=== PATIENT | male | born 1945 | race Asian ===

== ENCOUNTER 2016-10-11 16:14 | Emergency (ER) | payer OTHER ==
[2016-10-11 16:29] VITALS: BP 134/83; PULSE 72; TEMP 98.2; BMI 21.7
[2016-10-11 18:11] LABS: BASOPHIL 0.5 % (0-2.0); EOSINOPHIL 3.5 % (0-4.5); MCH 28.1 pg (25.7-33.7); MCHC 33.7 g/dl (32.0-35.9); MEAN CELL VOLUME 83.5 fl (80-96); MEAN PLT VOLUME 9.1 fl (7.5-11.1); NEUTROPHILS 61.7 % (42.8-82.8); PLATELET COUNT 155 K/MM3 (134-434); RDW 15.6 % (11.9-15.9); WHITE BLOOD COUNT 5.2 K/mm3 (4.0-10.0)
--- NOTE | 2016-10-11 18:37 | PDOC ---
History of Present Illness <Juan Diego Andrews - Last Filed: 10/11/16 18:37> - General History Source: Patient Exam Limitations: No Limitations - History of Present Illness Initial Comments: 10/11/16 18:38 The patient is a 71 year old male with a significant past medical history of depression, who presents to the emergency department with dizziness that began two hours ago. Patient states he was outside his home with his son when all of a sudden he felt dizziness, and his son was able to catch him before he fell. He denies any head trauma or LOC. The patient describes the dizziness as if the room were spinning. He reports he was recently started on Klonopin 2 days ago, by a Psychiatrist, and thats when his dizziness began. Patient denies any dizziness prior to the change in his medication. He denies any associated nausea , vomiting, diarrhea, or constipation. He denies any fever, chills, cough, headache, or changes in vision. He denies any recent travel or sick contacts. Allergies: NKDA Past Surgical History: None reported Social History: Non smoker. No ETOH or drug use. <Elias Hayden - Last Filed: 10/11/16 18:39> - General Chief Complaint: Lightheaded Stated Complaint: DIZZINESS Time Seen by Provider: 10/11/16 17:25 Past History - Past Medical History Psychiatric Problems: Yes (DEPRESSION) Suicide Attempt (Hx): No - Surgical History GI Surgery: Yes (ULCER) - Psycho/Social/Smoking Cessation Hx Anxiety: No Suicidal Ideation: No Smoking History: Never smoked Have you smoked in the past 12 months: No Information on smoking cessation initiated: No Hx Alcohol Use: No Drug/Substance Use Hx: No Substance Use Type: None <Juan Diego Andrews - Last Filed: 10/11/16 18:37> <Elias Hayden - Last Filed: 10/11/16 18:39> - Past Medical History Allergies/Adverse Reactions: Allergies Allergy/AdvReac Type Severity Reaction Status Date / Time No Known Allergies Allergy Verified 11/03/14 03:50 Home Medications: Ambulatory Orders Clonazepam [Klonopin -] 0.5 mg PO BID 10/11/16 Paliperidone [Invega -] 3 mg PO HS 10/11/16 Review of Systems - Review of Systems Able to Perform ROS?: Yes Comments:: 10/11/16 18:38 GENERAL/CONSTITUTIONAL: Yes: +weakness. No fever or chills. HEAD, EYES, EARS, NOSE AND THROAT: No change in vision. No ear pain or discharge. No sore throat. CARDIOVASCULAR: No chest pain or shortness of breath. RESPIRATORY: No cough, wheezing, or hemoptysis. GASTROINTESTINAL: No nausea, vomiting, diarrhea or constipation. GENITOURINARY: No dysuria, frequency, or change in urination. MUSCULOSKELETAL: No joint or muscle swelling or pain. No neck or back pain. SKIN: No rash NEUROLOGIC: Yes: +dizziness. No headache, loss of consciousness, or change in strength/sensation. ENDOCRINE: No increased thirst. No abnormal weight change. HEMATOLOGIC/LYMPHATIC: No anemia, easy bleeding, or history of blood clots. ALLERGIC/IMMUNOLOGIC: No hives or skin allergy. <Elias Hayden - Last Filed: 10/11/16 18:39> *Physical Exam - Vital Signs Last Vital Signs Temp Pulse Resp BP Pulse Ox 98.2 F 72 18 134/83 98 10/11/16 16:25 10/11/16 16:25 10/11/16 16:25 10/11/16 16:25 10/11/16 16:25 <Juan Diego Andrews - Last Filed: 10/11/16 18:37> - Vital Signs Last Vital Signs Temp Pulse Resp BP Pulse Ox 98.2 F 72 18 134/83 98 10/11/16 16:25 10/11/16 16:25 10/11/16 16:25 10/11/16 16:25 10/11/16 16:25 - Physical Exam Comments: 10/11/16 18:38 GENERAL: Awake, alert, and fully oriented, in no acute distress HEAD: No signs of trauma EYES: PERRLA, EOMI, sclera anicteric, conjunctiva clear ENT: Auricles normal inspection, hearing grossly normal, nares patent, oropharynx clear without exudates. Moist mucosa NECK: Normal ROM, supple, no lymphadenopathy, JVD, or masses LUNGS: Breath sounds equal, clear to auscultation bilaterally. No wheezes, and no crackles HEART: Regular rate and rhythm, normal S1 and S2, no murmurs, rubs or gallops ABDOMEN: Soft, nontender, normoactive bowel sounds. No guarding, no rebound. No masses EXTREMITIES: Normal range of motion, no edema. No clubbing or cyanosis. No cords, erythema, or tenderness. 5/5 strength in all 4 extremities.+2 bilateral dp, pt, and radial pulses NEUROLOGICAL: Cranial nerves II through XII grossly intact. Normal speech. Sensation intact bilaterally UE and LE. SKIN: Warm, Dry, normal turgor, no rashes or lesions noted. <Elias Hayden - Last Filed: 10/11/16 18:39> Heart Score/ECG Review - ECG Intrepretation Comment:: 10/11/16 18:39 Vent Rate: 64 bpm IMPRESSION: Normal sinus rhythm. <Elias Hayden - Last Filed: 10/11/16 18:39> ED Treatment Course - LABORATORY CBC & Chemistry Diagram: 10/11/16 17:55 10/11/16 17:55 - ADDITIONAL ORDERS Additional order review: 10/11/16 17:55 RBC 4.87 MCV 83.5 MCHC 33.7 RDW 15.6 MPV 9.1 Neutrophils % 61.7 Lymphocytes % 22.5 Monocytes % 11.8 H Eosinophils % 3.5 Basophils % 0.5 - RADIOLOGY Radiology Studies Ordered: Category Date Time Status HEAD CT WITHOUT CONTRAST [CT] Stat CT Scan 10/11/16 17:36 Ordered CHEST X-RAY PORTABLE* [RAD] Stat Radiology 10/11/16 17:36 Ordered <Juan Diego Andrews - Last Filed: 10/11/16 18:37> - LABORATORY CBC & Chemistry Diagram: 10/11/16 17:55 10/11/16 17:55 - ADDITIONAL ORDERS Additional order review: 10/11/16 17:55 RBC 4.87 MCV 83.5 MCHC 33.7 RDW 15.6 MPV 9.1 Neutrophils % 61.7 Lymphocytes % 22.5 Monocytes % 11.8 H Eosinophils % 3.5 Basophils % 0.5 <Elias Hayden - Last Filed: 10/11/16 18:39> *DC/Admit/Observation/Transfer - Attestations Physician Attestion: 10/11/16 18:37 I, Dr. Juan Diego Andrews, attest that this document has been prepared under my direction and personally reviewed by me in its entirety. I further attest, that it accurately reflects all work, treatment, procedures and medical decision -making performed by me. <Juan Diego Andrews - Last Filed: 10/11/16 18:37> - Attestations Scribe Attestion: 10/11/16 18:38 Documentation prepared by Elias Hayden, acting as registered medical transcriptionist for Juan Diego Andrews DO. <Elias Hayden - Last Filed: 10/11/16 18:39> - Referrals Referrals: Marlen Peng MD [Primary Care Provider] -
[2016-10-11 18:39] LABS: INR 1.06 (0.82-1.09); PROTHROMBIN TIME (PATIENT) 11.7 SEC (9.98-11.88)
[2016-10-11 18:52] LABS: ALBUMIN 3.2 g/dl (3.4-5.0); ANION GAP 6 (8-16); BILIRUBIN,TOTAL 0.3 mg/dL (0.2-1.0); CALCIUM 8.5 mg/dL (8.5-10.1); CO2 30 mmol/L (21-32); GLUCOSE,RANDOM 85 mg/dL (74-106); SGOT/AST 13 U/L (15-37); SGPT/ALT 19 U/L (12-78); TOT PROT 6.6 g/dl (6.4-8.2)
[2016-10-11 18:55] LABS: ALK PHOS 72 U/L (45-117); CPK 55 IU/L (39-308); TROPONIN I < 0.02 ng/ml (0.00-0.05)
--- NOTE | 2016-10-11 19:56 | PDOC ---
*Physical Exam - Vital Signs Last Vital Signs Temp Pulse Resp BP Pulse Ox 98.2 F 72 18 134/83 98 10/11/16 16:25 10/11/16 16:25 10/11/16 16:25 10/11/16 16:25 10/11/16 16:25 ED Treatment Course - LABORATORY CBC & Chemistry Diagram: 10/11/16 17:55 10/11/16 17:55 - ADDITIONAL ORDERS Additional order review: Laboratory Results 10/11/16 10/11/16 17:55 17:55 INR 1.06 Sodium 139 Potassium 4.1 Chloride 103 Carbon Dioxide 30 Anion Gap 6 L BUN 13 Creatinine 1.0 Creat Clearance w eGFR > 60 Random Glucose 85 Calcium 8.5 Total Bilirubin 0.3 AST 13 L ALT 19 Alkaline Phosphatase 72 Creatine Kinase 55 Troponin I < 0.02 B-Natriuretic Peptide 54.06 Total Protein 6.6 Albumin 3.2 L 10/11/16 17:55 RBC 4.87 MCV 83.5 MCHC 33.7 RDW 15.6 MPV 9.1 Neutrophils % 61.7 Lymphocytes % 22.5 Monocytes % 11.8 H Eosinophils % 3.5 Basophils % 0.5 *DC/Admit/Observation/Transfer Diagnosis at time of Disposition: Dizziness - Discharge Dispostion Disposition: HOME Condition at time of disposition: Stable Admit: No - Referrals Referrals: Marlen Peng MD [Primary Care Provider] - - Patient Instructions Printed Discharge Instructions: DI for Dizziness-Nonvertigo Additional Instructions: Please follow up with your doctor and no longer take the medication Klonopin - Post Discharge Activity
--- NOTE | 2016-10-12 15:30 | EKG ---
Test Reason : Blood Pressure : / mmHG Vent. Rate : 067 BPM Atrial Rate : 067 BPM P-R Int : 166 ms QRS Dur : 086 ms QT Int : 428 ms P-R-T Axes : 065 043 056 degrees QTc Int : 452 ms NORMAL SINUS RHYTHM NORMAL ECG NO PREVIOUS ECGS AVAILABLE Confirmed by ROSA TORRES MD ([id number]) on 10/12/2016 3:30:30 PM Referred By: Confirmed By:ROSA TORRES MD
== END 2016-10-11 20:11 | disposition home or self-care (01) ==
LOC: JER 16:14
DX: R42 Dizziness and giddiness (principal); F32.9 Major depressive disorder, single episode, unspecified
CPT/HCPCS: 36415; 70450-TC; 71010-TC; 80053; 83880; 84484; 85025; 85610; 93005; 93010; 99284-25

== ENCOUNTER 2018-05-30 20:17 | Inpatient (IN) | payer OTHER ==
[2018-05-30] MEDS ORDERED: ACETAMINOPHEN 1000 MG/100 ML VIAL (NON FORMULARY) IVPB ONE (20:40)
[2018-05-30] MEDS ORDERED: FAMOTIDINE 20 MG/50 ML IVPB 20 MG/50 ML MG IVPB ONE ×2 (20:40→21:10)
[2018-05-30] MEDS ORDERED: SODIUM CHLORIDE 1,000 ML IV STA (20:40)
[2018-05-30] MEDS ORDERED: ONDANSETRON 4 MG/2 ML VIAL IVPUSH ONE (20:40)
--- NOTE | 2018-05-30 20:55 | PDOC ---
Attending Attestation - HPI HPI: 05/30/18 21:10 The patient is a 73 year old male, with a significant past medical history of, who presents to the emergency department with, 2 days of abdominal pain. He denies any recent fevers, chills, headache or dizziness. He denies any recent nausea, vomit, diarrhea or constipation. He denies any recent chest pain or shortness of breath. He denies any recent dysuria, frequency, urgency or hematuria. Allergies: NKDA Primary Care Physician: Dr. Marlen Peng <Gautam Meredith - Last Filed: 05/30/18 21:10> - Resident Resident Name: Romaine Gallegos - ED Attending Attestation I have performed the following: I have examined & evaluated the patient, The case was reviewed & discussed with the resident, I agree w/resident's findings & plan, Exceptions are as noted - Physicial Exam PE: 05/31/18 00:16 Agree with exam as documented by resident Abd soft, nt, nd, no guarding, no rebound - Medical Decision Making 05/31/18 00:17 73M with non-specific, non-tender abdominal px, no GI/ symptoms, last BM yesterday consider sbo, gastritis, infection uti, divertic, less likely mesenteric ischemia, appy, alma, vascular f/u labs f/u ct ap 05/31/18 00:[address] ap send type/screen abx analgesia admit for surgical intervention 05/31/18 00:54 <Andres Nicole - Last Filed: 05/31/18 00:54> Attestations - Attestations 05/30/18 21:10 Documentation prepared by Gautam Meredith, acting as medical research assistant for Andres Nicole MD. <Gautam Meredith - Last Filed: 05/30/18 21:10>
[2018-05-30 20:58] LABS: BASO % 0.3 % (0-2.0); EOS % 1.3 % (0-4.5); HEMATOCRIT 41.4 % (35.4-49); HEMOGLOBIN 13.6 GM/dL (11.7-16.9); LYMPH % 9.6 % (8-40); MCH 27.7 pg (25.7-33.7); MCHC 32.9 g/dl (32.0-35.9); MEAN CELL VOLUME 84.2 fl (80-96); MEAN PLT VOLUME 9.4 fl (7.5-11.1); MONO % 7.6 % (3.8-10.2); NEUT % 81.2 % (42.8-82.8); PLATELET COUNT 123 K/MM3 (134-434); RBC 4.92 M/mm3 (4.00-5.60); RDW 15.1 % (11.9-15.9); WHITE BLOOD COUNT 6.7 K/mm3 (4.0-10.0)
[2018-05-30] MEDS ORDERED: ONDANSETRON 4 MG/2 ML VIAL ONE (21:09)
[2018-05-30] MEDS ORDERED: ACETAMINOPHEN INJECTION 100 ML IVPB ONE (21:09)
[2018-05-30 21:20] LABS: INR 1.11 (0.83-1.09); PROTHROMBIN TIME (PATIENT) 13.1 SEC (9.7-13.0)
--- NOTE | 2018-05-30 21:29 | PDOC ---
History of Present Illness - General Chief Complaint: Pain Stated Complaint: STOMACH PAIN Time Seen by Provider: 05/30/18 20:24 History Source: Patient Exam Limitations: No Limitations - History of Present Illness Initial Comments: 05/30/18 21:01 Patient is a 73M with history of GI ulcer s/p open repair here today complaining of abdominal pain. Patient describes the pain as periumbilical, and cannot describe it further. Denies nausea, vomiting, fevers, chills. Denies dysuria. Last bowel movement yesterday. Denies chest pain, shortness of breath. Denies leg pain, leg weakness. Past History - Past Medical History Allergies/Adverse Reactions: Allergies Allergy/AdvReac Type Severity Reaction Status Date / Time No Known Allergies Allergy Verified 05/30/18 20:20 Home Medications: Ambulatory Orders Omeprazole 20 mg PO DAILY 05/31/18 COPD: No Psychiatric Problems: Yes (DEPRESSION) - Surgical History GI Surgery: Yes (ULCER) - Suicide/Smoking/Psychosocial Hx Smoking History: Never smoked Have you smoked in the past 12 months: No Hx Alcohol Use: No Drug/Substance Use Hx: No Substance Use Type: None Review of Systems - Review of Systems Comments:: 05/30/18 21:29 GENERAL/CONSTITUTIONAL: No fever or chills. No weakness. HEAD, EYES, EARS, NOSE AND THROAT: No change in vision. No sore throat. CARDIOVASCULAR: No chest pain or shortness of breath RESPIRATORY: No cough, wheezing, or hemoptysis. GASTROINTESTINAL: No nausea, vomiting, diarrhea or constipation. GENITOURINARY: No dysuria, frequency, or change in urination. MUSCULOSKELETAL: No joint or muscle swelling or pain. No neck or back pain. SKIN: No rash NEUROLOGIC: No headache, vertigo, loss of consciousness, or change in strength/ sensation. ALLERGIC/IMMUNOLOGIC: No hives or skin allergy. *Physical Exam - Vital Signs Last Vital Signs Temp Pulse Resp BP Pulse Ox 98.0 F 80 18 138/77 100 05/30/18 20:18 05/30/18 20:18 05/30/18 20:18 05/30/18 20:18 05/30/18 20:18 - Physical Exam Comments: 05/30/18 21:30 GENERAL: Awake, alert, and fully oriented, in no acute distress, sitting up in bed HEAD: No signs of trauma, normocephalic, atraumatic EYES: PERRLA, EOMI, sclera anicteric, conjunctiva clear ENT: Auricles normal inspection, hearing grossly normal, nares patent, oropharynx clear without exudates. Moist mucosa NECK: Normal ROM, supple, no lymphadenopathy, JVD, or masses LUNGS: No distress, speaks full sentences, clear to auscultation bilaterally HEART: Regular rate and rhythm, normal S1 and S2, no murmurs, rubs or gallops, peripheral pulses normal and equal bilaterally. ABDOMEN: Soft, nontender, normoactive bowel sounds. No guarding, no rebound. No masses. Normal femoral pulses EXTREMITIES: Normal inspection, Normal range of motion, no edema. No clubbing or cyanosis. NEUROLOGICAL: Cranial nerves II through XII grossly intact. Normal speech, normal gait, no focal sensorimotor deficits SKIN: Warm, Dry, normal turgor, no rashes or lesions noted. ED Treatment Course - LABORATORY CBC & Chemistry Diagram: 05/30/18 20:50 05/30/18 20:50 - RADIOLOGY Radiology Studies Ordered: Category Date Time Status ABDOMEN & PELVIS CT WITH CONTR [CT] Stat CT Scan 05/30/18 20:57 Ordered Medical Decision Making - Medical Decision Making 05/30/18 21:30 Patient is 73M here today with abdominal pain. Vitals normal and stable. Patient appears well. No positive complaints other than vague pain. Considering age, will do broad workup. DDx includes, but is not limited to: sbo, uti, diverticulitis, gastritis. Will treat with pepcid, zofran, fluids. 05/31/18 00:31 CBC normal CMP normal. Trop and lactate negative. EKG shows sinus bradycardia with rate of [address] elevations/depressions. Normal axis. Normal intervals. No significant t wave changes. CT a/p shows findings consistent with appendicitis per [facility] read. Dr Peng and Dr Muhammad paged. Zosyn given. Pre-op labs and cxr done. 05/31/18 00:39 Case d/w Dr Peng. 05/31/18 00:41 Case d/w Dr Muhammad *DC/Admit/Observation/Transfer Diagnosis at time of Disposition: Appendicitis - Discharge Dispostion Condition at time of disposition: Stable Decision to Admit order: Yes - Referrals Referrals: Marlen Peng MD [Primary Care Provider] - - Patient Instructions - Post Discharge Activity
[2018-05-30 21:46] LABS: ALBUMIN 3.3 g/dl (3.4-5.0); ALK PHOS 79 U/L (45-117); ANION GAP 7 MMOL/L (8-16); BILIRUBIN,TOTAL 0.4 mg/dL (0.2-1); BLOOD UREA NITROGEN 10 mg/dL (7-18); CALCIUM 7.6 mg/dL (8.5-10.1); CHLORIDE 100 mmol/L (98-107); CO2 29 mmol/L (21-32); GLUCOSE,RANDOM 90 mg/dL (74-106); LIPASE 151 U/L (73-393); POTASSIUM 4.1 mmol/L (3.5-5.1); SGOT/AST 24 U/L (15-37); SGPT/ALT 14 U/L (13-61); SODIUM 136 mmol/L (136-145); TOT PROT 6.6 g/dl (6.4-8.2)
[2018-05-30 23:23] LABS: PH,URINE 6.5 (5.0-8.0); URINE APPEARANCE CLEAR; URINE BILIRUBIN NEGATIVE (NEGATIVE); URINE COLOR YELLOW; URINE GLUCOSE (UA) NEGATIVE (NEGATIVE); URINE KETONE NEGATIVE (NEGATIVE); URINE LEUK ESTERASE NEGATIVE (NEGATIVE); URINE NITRITE NEGATIVE (NEGATIVE); URINE PROTEIN NEGATIVE (NEGATIVE); URINE UROBILINOGEN 0.2 mg/dL (0.2-1.0)
[2018-05-31] MEDS ORDERED: morphine CARPU-JECT 4 MG/1 ML DISP.SYRIN IVPUSH ONE (00:29)
[2018-05-31] MEDS ORDERED: PIPERACILLIN/TAZOB 3.375 GM 3.375 GM in DEXTROSE 5%-WATER - 50 ML IVPB ONE (00:30)
[2018-05-31] MEDS ORDERED: SODIUM CHLORIDE 1,000 ML IV STA (00:30)
[2018-05-31] MEDS ORDERED: morphine SULFATE 4 MG/ML VIAL ONE (00:46)
[2018-05-31] MEDS ORDERED: PIPERACILLIN/TAZOB 3.375 GM 3.375 GM/50 ML BAG IVPB ONE (00:46)
[2018-05-31 04:58] VITALS: BMI 24.1
--- NOTE | 2018-05-31 09:14 | CONSULT ---
Consult Consult Specialty:: Surgery Referred by:: Marlen Peng - History of Present Illness Chief Complaint: Right lower quadrant abdominal pain x 2 days. - History Source History Provided By: Patient Limitations to Obtaining History: No Limitations - Past Medical History Gastrointestinal: Yes: Other ( H/O peptic ulcer disease , had surgery at [facility] about 25 years ago, Nature of surgery not known.) - Alcohol/Substance Use Hx Alcohol Use: No - Smoking History Smoking history: Never smoked Have you smoked in the past 12 months: No Home Medications - Allergies Allergies/Adverse Reactions: Allergies Allergy/AdvReac Type Severity Reaction Status Date / Time No Known Allergies Allergy Verified 05/30/18 20:20 - Home Medications Home Medications: Ambulatory Orders Omeprazole 20 mg PO DAILY 05/31/18 Review of Systems - Review of Systems Gastrointestinal: reports: Other Physical Exam Vital Signs: Vital Signs Temperature 97.7 F 05/31/18 06:00 Pulse Rate 56 L 05/31/18 06:00 Respiratory Rate 18 05/31/18 06:00 Blood Pressure 126/70 05/31/18 06:00 O2 Sat by Pulse Oximetry (%) 99 05/31/18 04:42 Gastrointestinal: Yes: Tenderness, Epigastrium (Tender in right lower quadrant. He has a periumbilical surgical scar.) Labs: CBC, BMP 05/30/18 20:50 05/30/18 20:50 Imaging - Results Cat Scan: Report Reviewed, Image Reviewed (Acute appendicitis) Problem List - Problems (1) Acute appendicitis Code(s): K35.80 - UNSPECIFIED ACUTE APPENDICITIS Qualifiers: Acute appendicitis type: with localized peritonitis (2) Right lower quadrant abdominal pain Code(s): R10.31 - RIGHT LOWER QUADRANT PAIN (3) Hiatal hernia Code(s): K44.9 - DIAPHRAGMATIC HERNIA WITHOUT OBSTRUCTION OR GANGRENE (4) Peptic ulcer disease Code(s): K27.9 - PEPTIC ULC, SITE UNSP, UNSP AC OR CHR, W/O HEMOR OR PERF Assessment/Plan : laparoscopic appendectomy, possible opwn. Patient and his were explained of his condition , of acute appendicitis, and advised appendectomy. consent obtained, Risks , benefits and complications were explained , including bowel injury , conversion to open. Antibiotics given. For surgery,.
--- NOTE | 2018-05-31 09:30 | HP ---
Admitting History and Physical - Admission Chief Complaint: abdominal pain for 2days History of Present Illness: 73 year old male with no medical problems came to ER last night with abdominal pain for 2days,denies nausea vomiting or diarrhea Mild tenderness + RLQ .CT abdomen consistent with Ac appendicitis History Source: Patient Limitations to Obtaining History: No Limitations - Past Medical History Gastrointestinal: Yes: Peptic Ulcer Disease, Other ( H/O peptic ulcer disease , had surgery at [facility] about 25 years ago, Nature of surgery not known.) Psych: Yes: Depression - Smoking History Smoking history: Never smoked Have you smoked in the past 12 months: No - Alcohol/Substance Use Hx Alcohol Use: No - Social History Usual Living Arrangement: Yes: With Spouse ADL: Independent History of Recent Travel: No Home Medications - Allergies Allergies/Adverse Reactions: Allergies Allergy/AdvReac Type Severity Reaction Status Date / Time No Known Allergies Allergy Verified 05/30/18 20:20 - Home Medications Home Medications: Ambulatory Orders Omeprazole 20 mg PO DAILY 05/31/18 Physical Examination Vital Signs: Vital Signs Temperature 97.7 F 05/31/18 06:00 Pulse Rate 56 L 05/31/18 06:00 Respiratory Rate 18 05/31/18 06:00 Blood Pressure 126/70 05/31/18 06:00 O2 Sat by Pulse Oximetry (%) 99 05/31/18 04:42 Constitutional: Yes: Well Nourished Eyes: Yes: WNL HENT: Yes: WNL Neck: Yes: WNL Cardiovascular: Yes: WNL Respiratory: Yes: WNL Gastrointestinal: Yes: Normal Bowel Sounds, Tenderness, Epigastrium (Rt lower quadrent tenderness +) Renal/: Yes: WNL Breast(s): Yes: WNL Musculoskeletal: Yes: WNL Edema: No Peripheral Pulses WNL: Yes Neurological: Yes: Alert Psychiatric: Yes: Alert Labs: CBC, BMP 05/30/18 20:50 05/30/18 20:50 Assessment/Plan Dx Acute appendicitis Cleared for surgery
[2018-05-31] MEDS ORDERED: BUPIVACAINE HCL/PF 0.5% (5MG/ML) 10 ML VIAL ONE (10:08)
--- NOTE | 2018-05-31 10:27 | EKG ---
Test Reason : Blood Pressure : / mmHG Vent. Rate : 059 BPM Atrial Rate : 059 BPM P-R Int : 178 ms QRS Dur : 088 ms QT Int : 454 ms P-R-T Axes : 059 035 055 degrees QTc Int : 449 ms SINUS BRADYCARDIA OTHERWISE NORMAL ECG WHEN COMPARED WITH ECG OF 11-OCT-2016 18:24, NO SIGNIFICANT CHANGE WAS FOUND Confirmed by MINDY BOWEN MD ([id number]) on 05/31/2018 10:27:11 AM Referred By: Confirmed By:MINDY BOWEN MD
[2018-05-31] MEDS ORDERED: ADENOSINE 6 MG/2 ML VIAL IVPUSH ONE (10:51)
[2018-05-31] MEDS ORDERED: PROPOFOL 20 ML ONE ×3 (10:51)
[2018-05-31] MEDS ORDERED: ROCURONIUM BROMIDE 50 MG/5 ML VIAL ONE (10:52)
[2018-05-31] MEDS ORDERED: SUCCINYLCHOLINE CHLORIDE 200 MG/10 ML VIAL ONE (10:52)
[2018-05-31] MEDS ORDERED: DEXAMETHASONE SOD PHOSPHATE 4 MG/1 ML VIAL ONE (10:57)
[2018-05-31] MEDS ORDERED: ePHEDrine SULFATE 50 MG/1 ML AMPULE ONE (11:01)
[2018-05-31] MEDS ORDERED: BUPIVACAINE HCL/PF 0.5% (5MG/ML) 10 ML VIAL IJ ONE (11:25)
[2018-05-31] MEDS ORDERED: NEOSTIGMINE METHYLSULFATE 0.5 MG/ML - 10 ML MDV ONE (12:20)
[2018-05-31] MEDS ORDERED: GLYCOPYRROLATE 0.2 MG/1 ML VIAL ONE (12:21)
--- NOTE | 2018-05-31 12:21 | OP ---
Operative Note - Note: Operative Date: 05/31/18 Pre-Operative Diagnosis: Acute Appendicitis Operation: Laparoscopic appendectomy. Findings: Acute appendicitis, abdominal adhesions. Surgeon: Zoe Muhammad Anesthesia: General Specimens Removed: Appendix Estimated Blood Loss (mls): 5 Operative Report Dictated: Yes
[2018-05-31] MEDS ORDERED: SODIUM CHLORIDE 1,000 ML IV SCH (12:30)
[2018-05-31] MEDS ORDERED: LACTATED RINGERS SOLUTION 1,000 ML IV SCH (12:45)
[2018-05-31] MEDS ORDERED: ACETAMINOPHEN 500 MG TABLET (FP) PO PRN (12:51)
[2018-05-31] MEDS ORDERED: ONDANSETRON 4 MG/2 ML VIAL ONE (12:52)
[2018-05-31] MEDS ORDERED: oxyCODONE HCL 5 MG TABLET PO PRN (12:56)
[2018-05-31] MEDS ORDERED: ACETAMINOPHEN 325 MG TABLET (FP) PO PRN (12:56)
--- NOTE | 2018-05-31 14:33 | OP ---
DATE OF OPERATION: 05/31/2018 PREOPERATIVE DIAGNOSIS: Acute appendicitis. POSTOPERATIVE DIAGNOSES: Acute appendicitis, abdominal adhesions. OPERATIVE PROCEDURE: Laparoscopic appendectomy. SURGEON: Ghassan Muhammad MD ANESTHESIA: General anesthesia. OPERATIVE DESCRIPTION: This 73-year-old man was admitted with history of onset of right lower quadrant abdominal pain for 2 days associated with nausea. There was no vomiting. He was tender in the right lower quadrant with leukocytosis. CAT scan suggested acute appendicitis with stranding around the appendix. The appendix was 13 mm in length. Diagnosis of acute appendicitis was made. He had previous surgery for peptic ulcer disease. Consent was obtained. Risks, benefits and complications have been discussed with the patient and his . Patient was brought to the operating room. He had been given Zosyn on admission. The abdomen was painted and draped. A Tejada catheter was left in the bladder which was removed right after completion of the surgery. As the patient had previous surgery in the midline above and below the umbilicus a small incision was made in the suprapubic area and using the Optiview the 5-mm trocar was introduced into the abdominal cavity. The abdomen was inflated with carbon dioxide at 6 L/minute with maximum intraabdominal pressure of 15 mmHg. Incision was then made in the infraumbilical region of the abdomen in a vertical fashion. This was deepened into the skin, subcutaneous tissue and the linea alba. The peritoneal cavity was entered and a 10- to 12-mm laparoscopic trocar of the Niyah type was introduced into the abdominal cavity. This was anchored with two 2-0 Vicryl sutures on either side of the midline to the abdominal wall. A 5-mm camera was then introduced into the abdominal cavity through this trocar. The suprapubic trocar was found to be in the abdominal cavity. There were multiple adhesions of the omentum to the anterior abdominal wall particularly in the upper abdomen. Under direct vision the 3rd trocar of 5 mm was introduced into the abdominal cavity through the right upper quadrant of the abdomen after making a small skin incision. This was noted entering the abdominal cavity with the camera in place. The terminal ileum was identified. This was normal. This was followed to the cecum. Once the cecum was identified this was retracted anteriorly using the bowel forceps. This brought into view the appendix which was retroileal in position. The appendix was inflamed and red. The mesoappendix was quite thick. The appendix was then grasped with a grasper through the right upper quadrant grasper and retracted anteriorly and cephalad, thus exposing the mesoappendix. The camera was switched to the supraumbilical port. With the LigaSure through the umbilical port the mesoappendix was divided. This was carried all the way down to the base of the appendix. However, the base of the appendix was covered with a lot of omentum and fat. An Endo-CLARENCE was then introduced to what was then believed to be the base of the appendix. However, it was realized that another 2 cm of appendix was left within the fat around the cecum. Dissection was then further carried down using the LigaSure all the way down to the base of the appendix and the cecum. Another Endo-CLARENCE was then introduced through the umbilical port. This was fired across the true base of the appendix. The cecum itself was normal. Hemostasis was satisfactory. An EndoCatch was then introduced through the umbilical port. The 2 segments of the appendix were then placed within the EndoCatch and retrieved out of the abdominal cavity. There was no contamination of the abdominal cavity as the appendiceal lumen was never left open. Hemostasis was satisfactory. The right lower quadrant was irrigated with normal saline. Fluid return was clear. There was no bleeding. The rest of the bowel was normal. The specimen was sent to Pathology. The abdomen was then deflated. The rest of the abdomen was then inspected and there was no bleeding and no bowel injury. The linea alba was then approximated with interrupted [id number] 2-0 Vicryl sutures. Marcaine 0.5% was injected into the wound. The skin was approximated with buried interrupted 4-0 Monocryl sutures in an interrupted fashion. Dermabond was applied across the skin edges. Estimated blood loss was between 5 to 10 mL. Patient tolerated the procedure well, was extubated and taken to the recovery room in satisfactory and stable condition. Gamaliel [id number] cc: Marlen Peng MD MTDEric
[2018-05-31] MEDS ORDERED: ONDANSETRON 4 MG/2 ML VIAL IVPUSH PRN (14:36)
[2018-05-31] MEDS ORDERED: ONDANSETRON 4 MG/2 ML VIAL IM PRN (15:04)
[2018-05-31] MEDS: RANITIDINE HCL 150 MG TABLET (FP) PO SCH (21:44)
[2018-06-01] MEDS ORDERED: PT OWN MED DRAWER 7, Y5N ONE (09:18)
[2018-06-01] MEDS: RANITIDINE HCL 150 MG TABLET (FP) PO SCH (09:28)
[2018-06-01] MEDS ORDERED: PIPERACILLIN/TAZOBACTAM 2.25 GM VIAL IVPB ONE (11:50)
[2018-06-01] MEDS ORDERED: DEXTROSE 5%-WATER - 50 ML IVPB ONE (11:50)
[2018-06-01] MEDS ORDERED: PIPERACILLIN/TAZOB 2.25 GM 2.25 GM in DEXTROSE 5%-WATER - 50 ML IVPB ONE (12:26)
[2018-06-01 13:59] VITALS: BP 110/67; PULSE 61; TEMP 98.2
--- NOTE | 2018-06-01 14:54 | DS ---
Physical Examination Vital Signs: Vital Signs Temperature 98.2 F 06/01/18 10:00 Pulse Rate 61 06/01/18 10:00 Respiratory Rate 18 06/01/18 10:00 Blood Pressure 110/67 06/01/18 10:00 O2 Sat by Pulse Oximetry (%) 99 06/01/18 09:00 Findings/Remarks: S/P lap appendectomy Doing well DC home Constitutional: Yes: No Distress Eyes: Yes: WNL HENT: Yes: WNL Neck: Yes: WNL Cardiovascular: Yes: WNL Respiratory: Yes: WNL Gastrointestinal: Yes: Normal Bowel Sounds Renal/: Yes: WNL Musculoskeletal: Yes: WNL Extremities: Yes: WNL Edema: No Peripheral Pulses WNL: Yes Integumentary: Yes: WNL Neurological: Yes: Alert Psychiatric: Yes: Alert Labs: CBC, BMP 05/30/18 20:50 05/30/18 20:50 Discharge Summary Reason For Visit: APPENDICITIS Current Active Problems Acute appendicitis (Acute) Appendicitis (Acute) Hiatal hernia (Acute) Peptic ulcer disease (Acute) Right lower quadrant abdominal pain (Acute) Condition: Stable - Instructions Diet, Activity, Other Instructions: Usual diet , Activity at [facility]. Call my office [phone] for follow up appointment. Motrin / tylenol for pain. May shower including on the wound. No antibiotics upon discharge. Disposition: HOME - Home Medications Comprehensive Discharge Medication List: Ambulatory Orders Omeprazole 20 mg PO DAILY 05/31/18
--- NOTE | 2018-06-03 16:48 | PATH ---
Surgical Pathology Report Patient Name: CHRIS LIRA Med. Rec. #: [id number] /Age/Gender: 1945 (Age: 73) / M Account: [id number] Location: [facility] MED/SURG Taken: 05/31/2018 Received: 05/31/2018 Reported: 06/03/2018 Physicians: Ghassan Muhammad M.D. Specimen(s) Received APPENDIX Clinical History Appendicitis Final Diagnosis APPENDIX, LAPAROSCOPIC APPENDECTOMY: ACUTE APPENDICITIS AND PERIAPPENDICITIS. Electronically Signed Sandi Aguilar M.D. Gross Description Received in formalin, labeled "appendix," are 2 separate portions of vermiform appendix measuring 2.5 and 3.3 cm in length. The shorter portion displays 2 staple lines, one consistent with the resection margin. The longer portion displays one staple line as well as appendiceal tip. The outer surfaces are haynes-pink with exudate and moderate of attached fat. Sectioning reveals focal inflammation within the lumen. The wall of the appendix averages 0.1 cm. in thickness. Resource Forester sections are submitted in one cassette. /05/31/2018 saudi05/31/2018
== END 2018-06-01 18:38 | disposition home or self-care (01) | DRG 343 ==
LOC: JER 20:17 → JERBED 05-31 00:33 → J8W 05-31 03:31
PROVIDERS: ADMIT Internal Medicine; ATTEND Internal Medicine
PROC: 0DTJ4ZZ Resection of Appendix, Percutaneous Endoscopic Approach (ICD-10-PCS; principal; 2018-05-31 14:30)
DX: K35.80 Unspecified acute appendicitis (principal); K44.9 Diaphragmatic hernia without obstruction or gangrene; K66.0 Peritoneal adhesions (postprocedural) (postinfection); F32.9 Major depressive disorder, single episode, unspecified; Z87.11 Personal history of peptic ulcer disease
CPT/HCPCS: 36415; 71045-TC-FY; 74177-TC; 80053; 81003; 82550; 83690; 84484; 85025; 85610; 86850; 86900; 86901; 87086; 87186; 88304-TC; 93005; 93010; 94760; 99285-25; J0131; J7030

== ENCOUNTER 2020-04-10 06:54 | Emergency (ER) | payer OTHER ==
[2020-04-10 07:50] VITALS: BMI 25.0
[2020-04-10] MEDS ORDERED: SODIUM CHLORIDE 1,000 ML IV STA (08:12)
[2020-04-10 08:35] LABS: BASO % 0.3 % (0-2.0); HEMATOCRIT 40.4 % (35.4-49); HEMOGLOBIN 13.6 GM/dL (11.7-16.9); LYMPH % 18.1 % (8-40); MCH 28.5 pg (25.7-33.7); MCHC 33.7 g/dl (32.0-35.9); MEAN CELL VOLUME 84.5 fl (80-96); MEAN PLT VOLUME 11.3 fl (7.5-11.1); MONO % 18.9 % (3.8-10.2); NEUT % 61.7 % (42.8-82.8); PLATELET COUNT 69 K/MM3 (134-434); RBC 4.78 M/mm3 (4.00-5.60); RDW 15.3 % (11.9-15.9); WHITE BLOOD COUNT 3.7 K/mm3 (4.0-10.0)
[2020-04-10 08:37] LABS: PH,URINE 6.5 (5.0-8.0); URINE APPEARANCE CLEAR; URINE BILIRUBIN NEGATIVE (NEGATIVE); URINE COLOR YELLOW; URINE GLUCOSE (UA) NEGATIVE (NEGATIVE); URINE KETONE TRACE (NEGATIVE); URINE LEUK ESTERASE NEGATIVE (NEGATIVE); URINE NITRITE NEGATIVE (NEGATIVE); URINE PROTEIN TRACE (NEGATIVE)
[2020-04-10 09:00] LABS: CHLORIDE 104 mmol/L (98-107); POTASSIUM 3.6 mmol/L (3.5-5.1); SODIUM 140 mmol/L (136-145)
[2020-04-10 09:02] LABS: ALBUMIN 2.6 g/dl (3.4-5.0); ANION GAP 4 MMOL/L (8-16); BLOOD UREA NITROGEN 14.2 mg/dL (7-18); CALCIUM 7.4 mg/dL (8.5-10.1); CO2 32 mmol/L (21-32); GLUCOSE,RANDOM 94 mg/dL (74-106)
[2020-04-10 09:05] LABS: SGOT/AST 25 U/L (15-37); SGPT/ALT 24 U/L (13-61)
[2020-04-10 09:06] LABS: CREATININE 0.8 mg/dL (0.55-1.3)
[2020-04-10 09:07] LABS: BILIRUBIN,TOTAL 0.2 mg/dL (0.2-1)
[2020-04-10 09:08] LABS: ALK PHOS 51 U/L (45-117)
[2020-04-10] MEDS ORDERED: BAMLANIVIMAB 700 MG in SODIUM CHLORIDE 250 ML IVPB ONE (10:42)
[2020-04-10 13:24] VITALS: BP 139/72; PULSE 70; TEMP 98
== END 2020-04-10 15:23 | disposition home or self-care (01) ==
LOC: JER 06:54
PROC: 3E03329 Introduction of Other Anti-infective into Peripheral Vein, Percutaneous Approach (ICD-10-PCS; principal; 2020-04-10)
PROC: 3E0337Z Introduction of Electrolytic and Water Balance Substance into Peripheral Vein, Percutaneous Approach (ICD-10-PCS; 2020-04-10)
DX: U07.1 COVID-19 (principal)
CPT/HCPCS: 36415; 71046-TC-FY; 80053; 81003; 82550; 84484; 85025; 93005; 93010; 99285-25; C9803; M0239; Q0239; U0003

== ENCOUNTER 2021-03-20 09:02 | Emergency (ER) | payer OTHER ==
[2021-03-20 09:09] VITALS: BP 149/67; PULSE 77; TEMP 98; BMI 23.6
[2021-03-20] MEDS ORDERED: ACETAMINOPHEN 325 MG TABLET (FP) PO ONE (09:40)
[2021-03-20] MEDS ORDERED: ACETAMINOPHEN 325 MG TABLET (FP) ONE ×2 (09:52→09:54)
[2021-03-20] MEDS ORDERED: ONDANSETRON *ODT* 4 MG TABLET ONE (09:54)
[2021-03-20] MEDS ORDERED: ONDANSETRON 4 MG TABLET PO ONE (09:54)
[2021-03-21 17:10] LABS: SARS-CoV-2 NAA Not Detected (Not Detected)
== END 2021-03-20 11:45 | disposition home or self-care (01) ==
LOC: JER 09:02
DX: B34.9 Viral infection, unspecified (principal); Z11.52 Encounter for screening for COVID-19
CPT/HCPCS: 71046-TC-FY; 87804; 99284-25; C9803; U0003; U0005

== ENCOUNTER 2021-04-09 09:19 | Inpatient (IN) | payer OTHER ==
[2021-04-09] MEDS ORDERED: ACETAMINOPHEN 1000 MG/100 ML BAG IVPB ONE (10:04)
[2021-04-09] MEDS ORDERED: ACETAMINOPHEN INJECTION 100 ML IVPB ONE (10:14)
[2021-04-09 11:08] LABS: BASO % 0.3 % (0-2.0); EOS % 1.3 % (0-4.5); HEMOGLOBIN 12.5 GM/dL (11.7-16.9); LYMPH % 9.4 % (8-40); MCH 28.5 pg (25.7-33.7); MCHC 33.8 g/dl (32.0-35.9); MEAN CELL VOLUME 84.4 fl (80-96); MEAN PLT VOLUME 9.6 fl (7.5-11.1); MONO % 7.6 % (3.8-10.2); NEUT % 81.4 % (42.8-82.8); RBC 4.38 M/mm3 (4.00-5.60); RDW 15.1 % (11.9-15.9); WHITE BLOOD COUNT 8.2 K/mm3 (4.0-10.0)
[2021-04-09 11:11] LABS: INR 1.04 (0.83-1.09)
[2021-04-09 11:13] LABS: ACTIVATED PTT 25.6 SECONDS (25.2-36.5)
[2021-04-09 11:23] LABS: ALBUMIN 3.6 g/dl (3.4-5.0); BLOOD UREA NITROGEN 20.6 mg/dL (7-18); CALCIUM 8.1 mg/dL (8.5-10.1)
[2021-04-09 11:28] LABS: BILIRUBIN,TOTAL 0.5 mg/dL (0.2-1)
[2021-04-09 11:56] LABS: PLATELET COUNT 174 10^3/uL (134-434)
[2021-04-09] MEDS ORDERED: oxyCODONE HCL 5 MG TABLET PO PRN (14:15)
[2021-04-09] MEDS ORDERED: ACETAMINOPHEN 325 MG TABLET (FP) PO PRN (14:15)
[2021-04-09] MEDS ORDERED: ALBUTEROL SO4 HFA INHALER IH PRN (14:37)
[2021-04-09] MEDS ORDERED: FLU VACC QS2021-22(6MOS UP)/PF 60 MCG/0.5 ML SYRINGE IM ONE (16:02)
[2021-04-09] MEDS ORDERED: PNEUMOC 13-VAL CONJ-DIP CRM/PF 0.5 ML DISP.SYRIN IM ONE (16:02)
[2021-04-09 16:08] VITALS: BMI 23.6
[2021-04-09] MEDS: PANTOPRAZOLE 20 MG TABLET PO SCH (16:18)
[2021-04-09] MEDS: amLODIPine BESYLATE 5 MG TABLET (FP) PO SCH (16:18)
[2021-04-09] MEDS: ACETAMINOPHEN 500 MG TABLET (FP) PO PRN (16:18)
[2021-04-09] MEDS: MIRTAZAPINE 15 MG TABLET (FP) PO SCH (21:45)
[2021-04-09] MEDS: ATORVASTATIN CA 20 MG TABLET (FP) PO SCH (21:45)
[2021-04-10] MEDS: ACETAMINOPHEN 500 MG TABLET (FP) PO PRN (08:52)
[2021-04-10] MEDS: PANTOPRAZOLE 20 MG TABLET PO SCH (09:01)
[2021-04-10] MEDS: amLODIPine BESYLATE 5 MG TABLET (FP) PO SCH (09:01)
[2021-04-10 09:47] LABS: BASO % 0.2 % (0-2.0); EOS % 0.3 % (0-4.5); HEMATOCRIT 36.1 % (35.4-49); HEMOGLOBIN 11.7 GM/dL (11.7-16.9); LYMPH % 11.2 % (8-40); MCH 28.1 pg (25.7-33.7); MCHC 32.5 g/dl (32.0-35.9); MEAN CELL VOLUME 86.4 fl (80-96); MEAN PLT VOLUME 9.6 fl (7.5-11.1); MONO % 8.1 % (3.8-10.2); NEUT % 80.2 % (42.8-82.8); PLATELET COUNT 127 10^3/uL (134-434); RBC 4.18 M/mm3 (4.00-5.60); RDW 15.3 % (11.9-15.9); WHITE BLOOD COUNT 5.1 K/mm3 (4.0-10.0)
[2021-04-10] MEDS ORDERED: ENOXAPARIN NA (PORCINE) 40 MG/0.4 ML DISP.SYRIN SQ SCH (10:00)
[2021-04-10 10:01] LABS: BLOOD UREA NITROGEN 20.8 mg/dL (7-18); CALCIUM 8.1 mg/dL (8.5-10.1)
[2021-04-10 17:20] LABS: URINE APPEARANCE CLEAR; URINE BILIRUBIN NEGATIVE (NEGATIVE); URINE COLOR YELLOW; URINE GLUCOSE (UA) NEGATIVE (NEGATIVE); URINE KETONE NEGATIVE (NEGATIVE); URINE LEUK ESTERASE NEGATIVE (NEGATIVE); URINE NITRITE NEGATIVE (NEGATIVE); URINE PROTEIN NEGATIVE (NEGATIVE); URINE UROBILINOGEN 0.2 mg/dL (0.2-1.0)
[2021-04-10] MEDS: ATORVASTATIN CA 20 MG TABLET (FP) PO SCH (21:28)
[2021-04-10] MEDS: MIRTAZAPINE 15 MG TABLET (FP) PO SCH (21:28)
[2021-04-11 09:45] LABS: BASO % 0.3 % (0-2.0); HEMATOCRIT 36.5 % (35.4-49); HEMOGLOBIN 12.2 GM/dL (11.7-16.9); LYMPH % 16.3 % (8-40); MCH 28.3 pg (25.7-33.7); MCHC 33.3 g/dl (32.0-35.9); MEAN CELL VOLUME 84.9 fl (80-96); MEAN PLT VOLUME 9.4 fl (7.5-11.1); NEUT % 68.4 % (42.8-82.8); PLATELET COUNT 96 10^3/uL (134-434); WHITE BLOOD COUNT 5.4 K/mm3 (4.0-10.0)
[2021-04-11] MEDS ORDERED: PROPOFOL 20 ML ONE ×3 (10:01→10:47)
[2021-04-11 10:05] LABS: BLOOD UREA NITROGEN 14.9 mg/dL (7-18); CALCIUM 7.9 mg/dL (8.5-10.1)
[2021-04-11 10:09] LABS: CREATININE 0.9 mg/dL (0.55-1.3)
[2021-04-11] MEDS: amLODIPine BESYLATE 5 MG TABLET (FP) PO SCH (10:17)
[2021-04-11] MEDS: PANTOPRAZOLE 20 MG TABLET PO SCH (10:18)
[2021-04-11] MEDS ORDERED: ceFAZolin SODIUM 1 GM VIAL IVPB ONE (10:35)
[2021-04-11] MEDS ORDERED: MIDAZOLAM HCL 2 MG/2 ML SINGLE DOSE VIAL ONE (10:52)
[2021-04-11] MEDS ORDERED: ONDANSETRON 4 MG/2 ML VIAL ONE (11:10)
[2021-04-11] MEDS ORDERED: ONDANSETRON 4 MG/2 ML VIAL IVPUSH PRN ×2 (11:25→12:30)
[2021-04-11] MEDS ORDERED: LACTATED RINGERS SOLUTION 1,000 ML IV SCH ×2 (11:30→11:38)
[2021-04-11] MEDS ORDERED: ALBUTEROL SO4 HFA INHALER IH PRN ×2 (11:38→12:30)
[2021-04-11] MEDS ORDERED: ACETAMINOPHEN 500 MG TABLET (FP) PO PRN (11:38)
[2021-04-11] MEDS ORDERED: oxyCODONE HCL 5 MG TABLET PO PRN (11:38)
[2021-04-11] MEDS ORDERED: ACETAMINOPHEN 325 MG TABLET (FP) PO PRN (11:38)
[2021-04-11] MEDS: oxyCODONE HCL 5 MG TABLET PO PRN (14:42)
[2021-04-11] MEDS: ACETAMINOPHEN 325 MG TABLET (FP) PO PRN (14:43)
[2021-04-11] MEDS: LACTATED RINGERS SOLUTION 1,000 ML IV SCH (16:08)
[2021-04-11] MEDS ORDERED: ceFAZolin SODIUM 1 GM VIAL ONE (17:17)
[2021-04-11] MEDS ORDERED: SODIUM CHLORIDE 100 ML IVPB ONE (17:17)
[2021-04-11] MEDS: CEFAZOLIN 2 GM in SODIUM CHLORIDE 100 ML IVPB SCH (18:08)
[2021-04-11] MEDS ORDERED: CEFAZOLIN 2 GM in SODIUM CHLORIDE 100 ML IVPB SCH (19:00)
[2021-04-11] MEDS ORDERED: ATORVASTATIN CA 20 MG TABLET (FP) PO SCH (22:00)
[2021-04-11] MEDS ORDERED: MIRTAZAPINE 15 MG TABLET (FP) PO SCH (22:00)
[2021-04-11] MEDS: ACETAMINOPHEN 500 MG TABLET (FP) PO PRN (22:19)
[2021-04-11] MEDS: ATORVASTATIN CA 20 MG TABLET (FP) PO SCH (22:19)
[2021-04-11] MEDS: MIRTAZAPINE 15 MG TABLET (FP) PO SCH (22:21)
[2021-04-12] MEDS: CEFAZOLIN 2 GM in SODIUM CHLORIDE 100 ML IVPB SCH (03:18)
[2021-04-12 08:44] LABS: BASO % 0.2 % (0-2.0); EOS % 0.8 % (0-4.5); HEMATOCRIT 31.6 % (35.4-49); HEMOGLOBIN 10.3 GM/dL (11.7-16.9); LYMPH % 9.5 % (8-40); MCHC 32.6 g/dl (32.0-35.9); MEAN CELL VOLUME 85.8 fl (80-96); MEAN PLT VOLUME 10.2 fl (7.5-11.1); MONO % 12.2 % (3.8-10.2); NEUT % 77.3 % (42.8-82.8); PLATELET COUNT 72 10^3/uL (134-434); RBC 3.68 M/mm3 (4.00-5.60); RDW 14.5 % (11.9-15.9); WHITE BLOOD COUNT 6.8 K/mm3 (4.0-10.0)
[2021-04-12] MEDS: ACETAMINOPHEN 325 MG TABLET (FP) PO PRN (08:45)
[2021-04-12] MEDS: oxyCODONE HCL 5 MG TABLET PO PRN (08:47)
[2021-04-12 08:50] LABS: CALCIUM 7.9 mg/dL (8.5-10.1)
[2021-04-12 08:51] LABS: BLOOD UREA NITROGEN 17.2 mg/dL (7-18)
[2021-04-12] MEDS: amLODIPine BESYLATE 5 MG TABLET (FP) PO SCH (09:41)
[2021-04-12] MEDS: ENOXAPARIN NA (PORCINE) 40 MG/0.4 ML DISP.SYRIN SQ SCH (09:41)
[2021-04-12] MEDS: PANTOPRAZOLE 20 MG TABLET PO SCH (09:41)
[2021-04-12] MEDS ORDERED: amLODIPine BESYLATE 5 MG TABLET (FP) PO SCH (10:00)
[2021-04-12] MEDS ORDERED: PANTOPRAZOLE 20 MG TABLET PO SCH (10:00)
[2021-04-12] MEDS ORDERED: PATIENT'S OWN MEDICATION (NON-FORMULARY) (Omeprazole [Omeprazole] 20 MG Tablet.Dr) PO SCH (10:00)
[2021-04-12] MEDS ORDERED: ENOXAPARIN NA (PORCINE) 40 MG/0.4 ML DISP.SYRIN SQ SCH (10:00)
[2021-04-12 11:13] LABS: CREATININE 0.9 mg/dL (0.55-1.3)
[2021-04-12] MEDS: LACTATED RINGERS SOLUTION 1,000 ML IV SCH (18:15)
[2021-04-12] MEDS: MIRTAZAPINE 15 MG TABLET (FP) PO SCH (21:17)
[2021-04-12] MEDS: ACETAMINOPHEN 500 MG TABLET (FP) PO PRN (21:18)
[2021-04-12] MEDS: ATORVASTATIN CA 20 MG TABLET (FP) PO SCH (21:25)
[2021-04-12] MEDS: POLYETHYLENE GLYCOL (HEALTHYLAX) 3350 17 GM PACKET PO SCH (23:45)
[2021-04-13 08:27] LABS: BASO % 0.2 % (0-2.0); EOS % 3.3 % (0-4.5); HEMATOCRIT 25.9 % (35.4-49); HEMOGLOBIN 8.6 GM/dL (11.7-16.9); LYMPH % 10.2 % (8-40); MCH 28.3 pg (25.7-33.7); MCHC 33.3 g/dl (32.0-35.9); MEAN CELL VOLUME 84.9 fl (80-96); MEAN PLT VOLUME 10.7 fl (7.5-11.1); NEUT % 77.3 % (42.8-82.8); PLATELET COUNT 65 10^3/uL (134-434); RBC 3.06 M/mm3 (4.00-5.60); RDW 14.7 % (11.9-15.9); WHITE BLOOD COUNT 7.9 K/mm3 (4.0-10.0)
[2021-04-13 08:50] LABS: BLOOD UREA NITROGEN 15.2 mg/dL (7-18); CALCIUM 7.7 mg/dL (8.5-10.1)
[2021-04-13 08:54] LABS: CREATININE 0.8 mg/dL (0.55-1.3)
[2021-04-13] MEDS: oxyCODONE HCL 5 MG TABLET PO PRN (09:45)
[2021-04-13] MEDS: ACETAMINOPHEN 325 MG TABLET (FP) PO PRN (09:49)
[2021-04-13] MEDS: POLYETHYLENE GLYCOL (HEALTHYLAX) 3350 17 GM PACKET PO SCH (10:55)
[2021-04-13] MEDS: ENOXAPARIN NA (PORCINE) 40 MG/0.4 ML DISP.SYRIN SQ SCH (10:55)
[2021-04-13] MEDS: amLODIPine BESYLATE 5 MG TABLET (FP) PO SCH (10:55)
[2021-04-13] MEDS: PANTOPRAZOLE 20 MG TABLET PO SCH (10:55)
[2021-04-13] MEDS: LACTATED RINGERS SOLUTION 1,000 ML IV SCH ×2 (10:56→20:32)
[2021-04-13] MEDS: MIRTAZAPINE 15 MG TABLET (FP) PO SCH (21:06)
[2021-04-13] MEDS: ATORVASTATIN CA 20 MG TABLET (FP) PO SCH (21:06)
[2021-04-14 10:01] LABS: BASO % 0.2 % (0-2.0); EOS % 3.5 % (0-4.5); HEMATOCRIT 21.6 % (35.4-49); HEMOGLOBIN 7.3 GM/dL (11.7-16.9); LYMPH % 11.2 % (8-40); MCH 28.5 pg (25.7-33.7); MCHC 33.7 g/dl (32.0-35.9); MEAN CELL VOLUME 84.7 fl (80-96); MEAN PLT VOLUME 10.4 fl (7.5-11.1); MONO % 9.8 % (3.8-10.2); NEUT % 75.3 % (42.8-82.8); PLATELET COUNT 81 10^3/uL (134-434); RBC 2.55 M/mm3 (4.00-5.60); RDW 14.7 % (11.9-15.9); WHITE BLOOD COUNT 5.9 K/mm3 (4.0-10.0)
[2021-04-14 10:22] LABS: CALCIUM 7.2 mg/dL (8.5-10.1)
[2021-04-14 10:23] LABS: BLOOD UREA NITROGEN 16.8 mg/dL (7-18)
[2021-04-14 10:26] LABS: CREATININE 0.8 mg/dL (0.55-1.3)
[2021-04-14] MEDS: amLODIPine BESYLATE 5 MG TABLET (FP) PO SCH (10:55)
[2021-04-14] MEDS: PANTOPRAZOLE 20 MG TABLET PO SCH (10:55)
[2021-04-14] MEDS: ENOXAPARIN NA (PORCINE) 40 MG/0.4 ML DISP.SYRIN SQ SCH (10:55)
[2021-04-14] MEDS: POLYETHYLENE GLYCOL (HEALTHYLAX) 3350 17 GM PACKET PO SCH (10:55)
[2021-04-14] MEDS: LACTATED RINGERS SOLUTION 1,000 ML IV SCH ×2 (10:56→14:10)
[2021-04-14] MEDS: oxyCODONE HCL 5 MG TABLET PO PRN (10:56)
[2021-04-14] MEDS: ACETAMINOPHEN 325 MG TABLET (FP) PO PRN (10:57)
[2021-04-14] MEDS ORDERED: MULTIVITAMINS (DAILY MVI) TABLET (FP) PO SCH (13:00)
[2021-04-14] MEDS: ACETAMINOPHEN 500 MG TABLET (FP) PO PRN (16:12)
[2021-04-14 19:52] VITALS: BP 108/58; PULSE 76; TEMP 98.9
[2021-04-14 20:20] LABS: BASO % 0.5 % (0-2.0); EOS % 6.2 % (0-4.5); HEMATOCRIT 23.5 % (35.4-49); LYMPH % 18.4 % (8-40); MCH 28.8 pg (25.7-33.7); MCHC 34.2 g/dl (32.0-35.9); MEAN CELL VOLUME 84.3 fl (80-96); MEAN PLT VOLUME 10.9 fl (7.5-11.1); MONO % 12.3 % (3.8-10.2); NEUT % 62.6 % (42.8-82.8); PLATELET COUNT 86 10^3/uL (134-434); RBC 2.79 M/mm3 (4.00-5.60); RDW 14.5 % (11.9-15.9); WHITE BLOOD COUNT 4.9 K/mm3 (4.0-10.0)
[2021-04-14] MEDS: MIRTAZAPINE 15 MG TABLET (FP) PO SCH (21:32)
[2021-04-14] MEDS: ATORVASTATIN CA 20 MG TABLET (FP) PO SCH (21:32)
[2021-04-14] MEDS ORDERED: FERROUS SO4 325 MG TABLET (FP) PO SCH (22:00)
[2021-04-15] MEDS ORDERED: ASCORBIC ACID 250 MG TABLET (FP) PO SCH (10:00)
== END 2021-04-14 19:49 | DRG 481 ==
LOC: JER 09:19 → JERBED 10:44 → J6S 15:32
PROVIDERS: ADMIT Internal Medicine; ATTEND Internal Medicine
PROC: 0QS604Z Reposition Right Upper Femur with Internal Fixation Device, Open Approach (ICD-10-PCS; principal; 2021-04-11 10:00)
PROC: 30233N1 Transfusion of Nonautologous Red Blood Cells into Peripheral Vein, Percutaneous Approach (ICD-10-PCS; 2021-04-14)
DX: S72.141A Displaced intertrochanteric fracture of right femur, initial encounter for closed fracture (principal); D62 Acute posthemorrhagic anemia; I10 Essential (primary) hypertension; E78.5 Hyperlipidemia, unspecified; W00.0XXA Fall on same level due to ice and snow, initial encounter; Y92.098 Other place in other non-institutional residence as the place of occurrence of the external cause; Z87.11 Personal history of peptic ulcer disease
CPT/HCPCS: 36415; 36430; 72170-TC-FY; 73502-TC-RT-FY; 73560-TC-RT-FY; 76000-TC-FY; 80048; 80053; 81003; 85025; 85610; 85730; 86850; 86900; 86901; 86922; 93005; 93010; 94010; 94760; 97116-GP; 97162-GP; 99285-25; C9803; P9058; U0003; U0005

== ENCOUNTER 2021-07-10 23:38 | Observation (INO) | payer OTHER ==
[2021-07-11 00:03] VITALS: BMI 24.1
[2021-07-11] MEDS ORDERED: ACETAMINOPHEN 1000 MG/100 ML BAG IVPB ONE (01:41)
[2021-07-11] MEDS ORDERED: MAG HYDROX/AL HYDROX/SIMETH 30 ML UNIT-DOSE CUP PO ONE (01:52)
[2021-07-11] MEDS ORDERED: FAMOTIDINE 20 MG/50 ML IVPB 20 MG/50 ML MG IVPB ONE (01:52)
[2021-07-11] MEDS ORDERED: MAG HYDROX/AL HYDROX/SIMETH 30 ML UNIT-DOSE CUP ONE (02:35)
[2021-07-11] MEDS ORDERED: ACETAMINOPHEN INJECTION 100 ML IVPB ONE (02:35)
[2021-07-11] MEDS ORDERED: FAMOTIDINE 10 MG/ML VIAL IVPB ONE (02:35)
[2021-07-11 02:39] LABS: BASO % 0.4 % (0-2.0); EOS % 4.2 % (0-4.5); HEMATOCRIT 32.2 % (35.4-49); HEMOGLOBIN 10.9 GM/dL (11.7-16.9); LYMPH % 23.5 % (8-40); MCH 27.9 pg (25.7-33.7); MEAN CELL VOLUME 82.1 fl (80-96); MEAN PLT VOLUME 8.4 fl (7.5-11.1); MONO % 14.5 % (3.8-10.2); NEUT % 57.4 % (42.8-82.8); PLATELET COUNT 142 10^3/uL (134-434); RBC 3.92 M/mm3 (4.00-5.60); RDW 16.9 % (11.9-15.9); WHITE BLOOD COUNT 4.9 K/mm3 (4.0-10.0)
[2021-07-11 03:00] LABS: CALCIUM 7.9 mg/dL (8.5-10.1)
[2021-07-11 03:01] LABS: BLOOD UREA NITROGEN 16.6 mg/dL (7-18)
[2021-07-11 03:04] LABS: CREATININE 0.9 mg/dL (0.55-1.3)
[2021-07-11 03:05] LABS: BILIRUBIN,TOTAL 0.3 mg/dL (0.2-1)
[2021-07-11] MEDS ORDERED: ASPIRIN 81 MG CHEWABLE TABLETS PO ONE (05:36)
[2021-07-11] MEDS: guaiFENesin 200 MG/10 ML 10 ML UNIT-DOSE CUPS PO PRN (05:54)
[2021-07-11 08:54] LABS: MAGNESIUM 2.4 mg/dL (1.8-2.4)
[2021-07-11 08:57] LABS: PHOSPHOROUS 3.1 mg/dL (2.5-4.9)
[2021-07-11 09:02] LABS: N-TERMINAL BNP 282.6 pg/ml (5-450)
[2021-07-11] MEDS: amLODIPine BESYLATE 5 MG TABLET (FP) PO SCH (10:05)
[2021-07-11] MEDS: PANTOPRAZOLE 40 MG TABLET PO SCH (10:05)
[2021-07-11] MEDS: MAG HYDROX/AL HYDROX/SIMETH 30 ML UNIT-DOSE CUP PO SCH ×3 (12:00→23:18)
[2021-07-11] MEDS: ATORVASTATIN CA 20 MG TABLET (FP) PO SCH (21:18)
[2021-07-12] MEDS: guaiFENesin 200 MG/10 ML 10 ML UNIT-DOSE CUPS PO PRN (00:27)
[2021-07-12] MEDS: MAG HYDROX/AL HYDROX/SIMETH 30 ML UNIT-DOSE CUP PO SCH ×3 (05:49→17:50)
[2021-07-12] MEDS: ASPIRIN COATED 81 MG TABLET.EC PO SCH ×2 (10:00→14:38)
[2021-07-12] MEDS: PANTOPRAZOLE 40 MG TABLET PO SCH ×2 (10:00→14:38)
[2021-07-12] MEDS: amLODIPine BESYLATE 5 MG TABLET (FP) PO SCH ×2 (10:00→14:38)
[2021-07-12] MEDS: REGADENOSON 0.4 MG/5 ML PRE-FILLED SYRINGE IVPUSH ONE ×2 (11:30→11:45)
[2021-07-12] MEDS ORDERED: REGADENOSON 0.4 MG/5 ML PRE-FILLED SYRINGE IVPUSH ONE (11:37)
[2021-07-12] MEDS: ATORVASTATIN CA 20 MG TABLET (FP) PO SCH (21:29)
[2021-07-13] MEDS: MAG HYDROX/AL HYDROX/SIMETH 30 ML UNIT-DOSE CUP PO SCH ×5 (00:03→17:03)
[2021-07-13] MEDS: ACETAMINOPHEN 325 MG TABLET (FP) PO PRN (00:11)
[2021-07-13] MEDS: amLODIPine BESYLATE 5 MG TABLET (FP) PO SCH (09:54)
[2021-07-13] MEDS: ASPIRIN COATED 81 MG TABLET.EC PO SCH (09:54)
[2021-07-13] MEDS: PANTOPRAZOLE 40 MG TABLET PO SCH (09:55)
[2021-07-13] MEDS: ATORVASTATIN CA 20 MG TABLET (FP) PO SCH (22:30)
[2021-07-14] MEDS: MAG HYDROX/AL HYDROX/SIMETH 30 ML UNIT-DOSE CUP PO SCH ×4 (00:54→18:14)
[2021-07-14] MEDS: ACETAMINOPHEN 325 MG TABLET (FP) PO PRN (02:46)
[2021-07-14] MEDS: amLODIPine BESYLATE 5 MG TABLET (FP) PO SCH (09:28)
[2021-07-14] MEDS: PANTOPRAZOLE 40 MG TABLET PO SCH (09:28)
[2021-07-14] MEDS: ASPIRIN COATED 81 MG TABLET.EC PO SCH (09:28)
[2021-07-14 18:45] VITALS: BP 126/60; PULSE 78; TEMP 98.5
== END 2021-07-14 22:24 | disposition short-term general hospital (02) ==
LOC: JER 23:38 → JERBED 07-11 01:41 → J4W 07-11 08:13
PROVIDERS: ADMIT Internal Medicine; ATTEND Internal Medicine
PROC: 3E033GC Introduction of Other Therapeutic Substance into Peripheral Vein, Percutaneous Approach (ICD-10-PCS; principal; 2021-07-11)
PROC: 3E033NZ Introduction of Analgesics, Hypnotics, Sedatives into Peripheral Vein, Percutaneous Approach (ICD-10-PCS; 2021-07-11)
PROC: 3E033GC Introduction of Other Therapeutic Substance into Peripheral Vein, Percutaneous Approach (ICD-10-PCS; 2021-07-11)
DX: J06.9 Acute upper respiratory infection, unspecified (principal); F31.9 Bipolar disorder, unspecified; K35.80 Unspecified acute appendicitis; R42 Dizziness and giddiness; K44.9 Diaphragmatic hernia without obstruction or gangrene; R10.31 Right lower quadrant pain; B97.4 Respiratory syncytial virus as the cause of diseases classified elsewhere; R13.10 Dysphagia, unspecified; Z29.8 Encounter for other specified prophylactic measures; I10 Essential (primary) hypertension; E78.00 Pure hypercholesterolemia, unspecified; R20.8 Other disturbances of skin sensation; Z20.822 Contact with and (suspected) exposure to COVID-19
CPT/HCPCS: 0241U-QW; 36415; 71046-TC-FY; 74230-TC-FY; 78452-TC; 80053; 80061; 83036; 83735; 83880; 84100; 84443; 84484; 85025; 87807; 92611-GN; 93005; 93010; 93017; 93306-TC; 96365; 96375; 99285-25; A9502; C9803-CS; G0378; J2785; U0003; U0005

== ENCOUNTER 2021-12-07 18:41 | Emergency (ER) | payer OTHER ==
[2021-12-07 18:52] VITALS: TEMP 98.5; BMI 24.4
[2021-12-07 20:19] LABS: VENOUS BASE EXCESS 1.5 mmol/L (-2-2); VENOUS O2 SATURATION 46.1 % (70-80); VENOUS PCO2 42.2 mmHg (38-52); VENOUS PH 7.412 (7.310-7.410)
[2021-12-07 20:23] LABS: EOS % 3.2 % (0-4.5); HEMATOCRIT 36.6 % (35.4-49); HEMOGLOBIN 12.4 GM/dL (11.7-16.9); LYMPH % 6.9 % (8-40); MCH 28.3 pg (25.7-33.7); MCHC 33.7 g/dl (32.0-35.9); MEAN CELL VOLUME 83.8 fl (80-96); MONO % 7.5 % (3.8-10.2); NEUT % 82.4 % (42.8-82.8); PLATELET COUNT 75 10^3/uL (134-434); RBC 4.37 M/mm3 (4.00-5.60); RDW 15.9 % (11.9-15.9); WHITE BLOOD COUNT 3.6 K/mm3 (4.0-10.0)
[2021-12-07 20:30] LABS: INR 1.24 (0.83-1.09); PROTHROMBIN TIME (PATIENT) 14.3 SEC (9.7-13.0)
[2021-12-07 20:33] LABS: ACTIVATED PTT 25.2 SECONDS (25.2-36.5)
[2021-12-07 20:43] LABS: CALCIUM 7.9 mg/dL (8.5-10.1)
[2021-12-07] MEDS ORDERED: MAGNESIUM SULF 50% (8.12 MEQ/2 ML-1 GM VIAL) IVPB ONE (20:43)
[2021-12-07 20:44] LABS: BLOOD UREA NITROGEN 14.7 mg/dL (7-18)
[2021-12-07] MEDS ORDERED: POTASSIUM CHLORIDE ORAL LIQUID 20 MEQ/15 ML PO ONE (20:44)
[2021-12-07] MEDS ORDERED: MAGNESIUM SULFATE IN WATER 2 GM/50 ML IVPB IVPB ONE (20:46)
[2021-12-07] MEDS ORDERED: POTASSIUM CHLORIDE ORAL LIQUID 20 MEQ/15 ML ONE (20:46)
[2021-12-07 20:47] LABS: CREATININE 0.8 mg/dL (0.55-1.3)
[2021-12-07 20:48] LABS: BILIRUBIN,TOTAL 0.6 mg/dL (0.2-1)
[2021-12-07] MEDS ORDERED: DEXAMETHASONE LIQUID 0.5 MG/5 ML PO ONE (21:06)
[2021-12-07] MEDS ORDERED: ALBUTEROL SO4 2.5/IPRATROPIUM 0.5 INH SOL 3 ML VIAL.NEB. NEB ONE ×2 (21:21→21:38)
[2021-12-07] MEDS ORDERED: DEXAMETHASONE SOD PHOSPHATE 10 MG/1 ML VIAL ONE (21:38)
[2021-12-07 22:58] VITALS: BP 122/76; PULSE 103; RESP 18
== END 2021-12-07 22:59 | disposition home or self-care (01) ==
LOC: JER 18:41
PROC: 3E0F7GC Introduction of Other Therapeutic Substance into Respiratory Tract, Via Natural or Artificial Opening (ICD-10-PCS; principal; 2021-12-07)
PROC: 3E033GC Introduction of Other Therapeutic Substance into Peripheral Vein, Percutaneous Approach (ICD-10-PCS; 2021-12-07)
DX: R05.1 Acute cough (principal)
CPT/HCPCS: 0241U-QW; 36415; 71045-TC-FY; 80053; 82803; 83605; 83880; 84484; 85025; 85610; 85730; 86850; 86900; 86901; 87040; 93005; 93010; 99285-25

== ENCOUNTER 2023-03-31 20:52 | Inpatient (IN) | payer OTHER ==
[2023-03-31] MEDS ORDERED: SODIUM CHLORIDE IV ONE (21:07)
[2023-03-31 21:25] LABS: BASO % 0.2 % (0-2.0); EOS % 0.5 % (0-4.5); HEMATOCRIT 35.3 % (35.4-49); MCH 27.9 pg (25.7-33.7); MCHC 33.9 g/dl (32.0-35.9); MEAN CELL VOLUME 82.1 fl (80-96); MEAN PLT VOLUME 8.6 fl (7.5-11.1); MONO % 2.3 % (3.8-10.2); PLATELET COUNT 116 10^3/uL (134-434); RBC 4.29 M/mm3 (4.00-5.60); RDW 15.8 % (11.9-15.9); WHITE BLOOD COUNT 5.2 K/mm3 (4.0-10.0)
[2023-03-31 21:32] LABS: INR 1.26 (0.83-1.09); PROTHROMBIN TIME (PATIENT) 14.6 SEC (9.7-13.0)
[2023-03-31 21:34] LABS: ACTIVATED PTT 26.2 SECONDS (25.2-36.5)
[2023-03-31] MEDS ORDERED: MAGNESIUM SULF 50% (8.12 MEQ/2 ML-1 GM VIAL) IVPB ONE (22:11)
[2023-03-31] MEDS ORDERED: FAMOTIDINE 20 MG/50 ML IVPB 20 MG/50 ML MG IVPB ONE ×2 (22:12→22:20)
[2023-03-31 22:15] LABS: VENOUS BASE EXCESS -3.4 mmol/L (-2-2); VENOUS O2 SATURATION 68.8 % (70-80); VENOUS PCO2 34.3 mmHg (38-52); VENOUS PH 7.392 (7.310-7.410)
[2023-03-31 22:18] LABS: POTASSIUM 3.2 mmol/L (3.5-5.1)
[2023-03-31 22:20] LABS: ALBUMIN 2.9 g/dl (3.4-5.0); BLOOD UREA NITROGEN 15.9 mg/dL (7-18); CALCIUM 8.2 mg/dL (8.5-10.1)
[2023-03-31] MEDS ORDERED: MAGNESIUM SULFATE IN WATER 2 GM/50 ML IVPB IVPB ONE (22:20)
[2023-03-31 22:21] LABS: PH,URINE 7.5 (5.0-8.0); URINE APPEARANCE CLEAR; URINE BILIRUBIN NEGATIVE (NEGATIVE); URINE COLOR YELLOW; URINE GLUCOSE (UA) NEGATIVE (NEGATIVE); URINE KETONE TRACE (NEGATIVE); URINE LEUK ESTERASE NEGATIVE (NEGATIVE); URINE NITRITE NEGATIVE (NEGATIVE); URINE PROTEIN TRACE (NEGATIVE)
[2023-03-31 22:23] LABS: CREATININE 1.3 mg/dL (0.55-1.3)
[2023-03-31 22:25] LABS: BILIRUBIN,TOTAL 0.9 mg/dL (0.2-1); TOT PROT 5.9 g/dl (6.4-8.2)
[2023-03-31 22:27] LABS: LACTIC ACID 4.3 mmol/L (0.4-2.0)
[2023-03-31] MEDS ORDERED: VANCOMYCIN 1 GM PREMIX - 1 GM/200 ML BAG IVPB ONE (22:49)
[2023-03-31] MEDS ORDERED: PIPERACILLIN/TAZOB 3.375 GM 3.375 GM in DEXTROSE 5%-WATER - 50 ML IVPB ONE (22:49)
[2023-03-31] MEDS ORDERED: PIPERACILLIN/TAZOB 3.375 GM 3.375 GM/50 ML BAG IVPB ONE (23:54)
[2023-04-01] MEDS ORDERED: VANCOMYCIN 1 GRAM (PRE-DOCKED) 1,000 MG/250 ML BAG IVPB ONE
[2023-04-01] MEDS ORDERED: POTASSIUM CHLORIDE ORAL LIQUID 20 MEQ/15 ML PO ONE (00:54)
[2023-04-01] MEDS ORDERED: SODIUM CHLORIDE 1,000 ML IV SCH (01:15)
[2023-04-01 01:37] LABS: LACTIC ACID 2.5 mmol/L (0.4-2.0)
[2023-04-01] MEDS ORDERED: ACETAMINOPHEN 325 MG TABLET (FP) PO PRN (01:44)
[2023-04-01 07:27] LABS: BASO % 0.1 % (0-2.0); HEMATOCRIT 36.3 % (35.4-49); HEMOGLOBIN 11.9 GM/dL (11.7-16.9); LYMPH % 5.9 % (8-40); MCH 27.1 pg (25.7-33.7); MCHC 32.8 g/dl (32.0-35.9); MEAN CELL VOLUME 82.6 fl (80-96); MEAN PLT VOLUME 9.1 fl (7.5-11.1); MONO % 4.4 % (3.8-10.2); NEUT % 89.6 % (42.8-82.8); PLATELET COUNT 104 10^3/uL (134-434); RDW 15.8 % (11.9-15.9); WHITE BLOOD COUNT 5.1 K/mm3 (4.0-10.0)
[2023-04-01 07:32] LABS: LACTIC ACID 2.4 mmol/L (0.4-2.0)
[2023-04-01 07:37] LABS: POTASSIUM 4.3 mmol/L (3.5-5.1)
[2023-04-01 07:46] LABS: TOT PROT 5.6 g/dl (6.4-8.2)
[2023-04-01 07:47] LABS: BILIRUBIN,TOTAL 0.5 mg/dL (0.2-1)
[2023-04-01 07:52] LABS: CALCIUM 7.8 mg/dL (8.5-10.1)
[2023-04-01 07:53] LABS: ALBUMIN 2.7 g/dl (3.4-5.0); BLOOD UREA NITROGEN 11.8 mg/dL (7-18)
[2023-04-01 07:56] LABS: CREATININE 0.9 mg/dL (0.55-1.3)
[2023-04-01] MEDS ORDERED: PIPERACILLIN/TAZOB 4.5 GM 4.5 GM in DEXTROSE 5%-WATER 100 ML IVPB SCH (09:00)
[2023-04-01] MEDS ORDERED: ASPIRIN 81 MG CHEWABLE TABLETS ONE (09:13)
[2023-04-01] MEDS ORDERED: DIVALPROEX NA *ER* EXTEND REL 250 MG TABLET.SA ONE (09:13)
[2023-04-01] MEDS ORDERED: ENOXAPARIN NA (PORCINE) 40 MG/0.4 ML DISP.SYRIN SQ ONE (09:14)
[2023-04-01] MEDS ORDERED: PIPERACILLIN/TAZOB 4.5 GM 4.5 GM/100 ML BAG IVPB ONE (09:14)
[2023-04-01] MEDS: ENOXAPARIN NA (PORCINE) 40 MG/0.4 ML DISP.SYRIN SQ SCH (09:24)
[2023-04-01] MEDS: DIVALPROEX SODIUM 250 MG TABLET E.C. PO SCH ×2 (09:24→21:25)
[2023-04-01] MEDS: ASPIRIN 81 MG CHEWABLE TABLETS PO SCH (09:24)
[2023-04-01] MEDS ORDERED: ALBUTEROL SO4 0.083% IH SOL 2.5 MG/3 ML VIAL.NEB. NEB PRN (13:24)
[2023-04-01] MEDS ORDERED: AZITHROMYCIN IVPB 500 MG/250 ML BAG IVPB ONE ×2 (13:30→14:01)
[2023-04-01] MEDS ORDERED: CEFTRIAXONE 1 GM/50 ML BAG ONE (13:44)
[2023-04-01] MEDS: CEFTRIAXONE 1 GM in DEXTROSE 5%-WATER - 50 ML IVPB SCH (13:46)
[2023-04-01] MEDS: LACTATED RINGERS SOLUTION 1,000 ML/1,000 ML INFUS.BAG IV SCH (13:46)
[2023-04-01] MEDS ORDERED: methylPREDNISolone NA SUCC 40 MG/1 ML VIAL ONE (13:47)
[2023-04-01] MEDS: methylPREDNISolone NA SUCC 40 MG/1 ML VIAL IVPUSH SCH (13:58)
[2023-04-01] MEDS: FLUTICASONE/UMECLIDIN/VILANTER(100-62.5-25 TRELEGY ELLIPTA) INAHLER IH SCH (15:22)
[2023-04-01 17:54] VITALS: BMI 24.1
[2023-04-02] MEDS ORDERED: VANCOMYCIN/WATER FOR INJ (PEG) 750 MG/150 ML BAG IVPB SCH
[2023-04-02] MEDS ORDERED: VANCOMYCIN 750 MG in DEXTROSE 5%-WATER - 150 ML IVPB SCH (00:01)
[2023-04-02] MEDS: ENOXAPARIN NA (PORCINE) 40 MG/0.4 ML DISP.SYRIN SQ SCH (10:00)
[2023-04-02] MEDS: CEFTRIAXONE 1 GM in DEXTROSE 5%-WATER - 50 ML IVPB SCH (10:00)
[2023-04-02] MEDS: DIVALPROEX SODIUM 250 MG TABLET E.C. PO SCH ×2 (10:00→21:40)
[2023-04-02] MEDS: methylPREDNISolone NA SUCC 40 MG/1 ML VIAL IVPUSH SCH (10:00)
[2023-04-02] MEDS: ASPIRIN 81 MG CHEWABLE TABLETS PO SCH (10:00)
[2023-04-02] MEDS: FLUTICASONE/UMECLIDIN/VILANTER(100-62.5-25 TRELEGY ELLIPTA) INAHLER IH SCH (10:01)
[2023-04-02] MEDS: LACTATED RINGERS SOLUTION 1,000 ML/1,000 ML INFUS.BAG IV SCH ×2 (10:03→13:38)
[2023-04-02] MEDS: AZITHROMYCIN IVPB 250 MG in DEXTROSE 5%-WATER - 250 ML IVPB SCH (12:00)
[2023-04-02] MEDS ORDERED: MELATONIN 5 MG TABLETS PO ONE (21:18)
[2023-04-03] MEDS: LACTATED RINGERS SOLUTION 1,000 ML/1,000 ML INFUS.BAG IV SCH (01:29)
[2023-04-03 08:16] LABS: POTASSIUM 3.8 mmol/L (3.5-5.1)
[2023-04-03 08:18] LABS: ALBUMIN 2.6 g/dl (3.4-5.0); CALCIUM 7.9 mg/dL (8.5-10.1)
[2023-04-03 08:21] LABS: LDL CHOLESTEROL (ONLY SJRH) 68 mg/dL (5-100)
[2023-04-03 08:21] LABS: CREATININE 0.7 mg/dL (0.55-1.3)
[2023-04-03 08:23] LABS: HDL CHOLESTEROL 56 mg/dL (40-60)
[2023-04-03 08:23] LABS: BILIRUBIN,TOTAL 0.3 mg/dL (0.2-1); TOT PROT 5.3 g/dl (6.4-8.2)
[2023-04-03 08:26] LABS: N-TERMINAL BNP 3610.2 pg/ml (5-450)
[2023-04-03 08:54] LABS: CHOLESTEROL 131 mg/dL (50-200)
[2023-04-03] MEDS: ASPIRIN 81 MG CHEWABLE TABLETS PO SCH (10:12)
[2023-04-03] MEDS: methylPREDNISolone NA SUCC 40 MG/1 ML VIAL IVPUSH SCH (10:12)
[2023-04-03] MEDS: CEFTRIAXONE 1 GM in DEXTROSE 5%-WATER - 50 ML IVPB SCH (10:12)
[2023-04-03] MEDS: ENOXAPARIN NA (PORCINE) 40 MG/0.4 ML DISP.SYRIN SQ SCH (10:12)
[2023-04-03] MEDS: DIVALPROEX SODIUM 250 MG TABLET E.C. PO SCH ×2 (10:12→21:28)
[2023-04-03] MEDS: FLUTICASONE/UMECLIDIN/VILANTER(100-62.5-25 TRELEGY ELLIPTA) INAHLER IH SCH (10:13)
[2023-04-03] MEDS: AZITHROMYCIN IVPB 250 MG in DEXTROSE 5%-WATER - 250 ML IVPB SCH (12:40)
[2023-04-03] MEDS ORDERED: FUROSEMIDE 20 MG TABLET (FP) PO ONE (13:15)
[2023-04-03] MEDS ORDERED: MELATONIN 5 MG TABLETS PO PRN (21:42)
[2023-04-04 03:47] VITALS: RESP 18
[2023-04-04 08:40] VITALS: BP 122/77; PULSE 75; TEMP 97.3
[2023-04-04] MEDS ORDERED: FUROSEMIDE 20 MG TABLET (FP) PO SCH (10:00)
[2023-04-04] MEDS: ENOXAPARIN NA (PORCINE) 40 MG/0.4 ML DISP.SYRIN SQ SCH (10:35)
[2023-04-04] MEDS: DIVALPROEX SODIUM 250 MG TABLET E.C. PO SCH (10:35)
[2023-04-04] MEDS: methylPREDNISolone NA SUCC 40 MG/1 ML VIAL IVPUSH SCH (10:36)
[2023-04-04] MEDS: CEFTRIAXONE 1 GM in DEXTROSE 5%-WATER - 50 ML IVPB SCH (10:36)
[2023-04-04] MEDS: FLUTICASONE/UMECLIDIN/VILANTER(100-62.5-25 TRELEGY ELLIPTA) INAHLER IH SCH (10:36)
[2023-04-04] MEDS: ASPIRIN 81 MG CHEWABLE TABLETS PO SCH (10:36)
[2023-04-04] MEDS: AZITHROMYCIN IVPB 250 MG in DEXTROSE 5%-WATER - 250 ML IVPB SCH (12:01)
== END 2023-04-04 14:17 | disposition home health service (06) | DRG 871 ==
LOC: JER 20:52 → JERBED 23:54 → J4W 04-01 17:40
PROVIDERS: ADMIT Internal Medicine; ATTEND Family Medicine
DX: A41.89 Other specified sepsis (principal); J18.9 Pneumonia, unspecified organism; J44.0 Chronic obstructive pulmonary disease with (acute) lower respiratory infection; K21.9 Gastro-esophageal reflux disease without esophagitis; E78.5 Hyperlipidemia, unspecified; R09.02 Hypoxemia; D69.6 Thrombocytopenia, unspecified; I11.0 Hypertensive heart disease with heart failure; I50.9 Heart failure, unspecified; R00.0 Tachycardia, unspecified; R73.09 Other abnormal glucose; E87.6 Hypokalemia; J43.9 Emphysema, unspecified; F32.A Depression, unspecified; Z87.11 Personal history of peptic ulcer disease
CPT/HCPCS: 0241U-QW; 36415; 71045-TC-FY; 71275-TC; 80053; 80061; 81003; 82550; 82803; 83036; 83605; 83880; 84443; 84484; 85025; 85610; 85730; 86850; 86900; 86901; 87040; 87086; 87899; 93005; 93010; 94761; 99285-25; Q9967

== ENCOUNTER 2024-02-03 18:54 | Observation (INO) | payer OTHER ==
[2024-02-03] MEDS ORDERED: ALBUTEROL SO4 2.5/IPRATROPIUM 0.5 INH SOL 3 ML VIAL.NEB. NEB ONE (20:26)
[2024-02-03 20:31] LABS: BASO % 0.1 % (0-2.0); EOS % 1.2 % (0-4.5); HEMATOCRIT 37.7 % (35.4-49); HEMOGLOBIN 12.4 GM/dL (11.7-16.9); LYMPH % 5.7 % (8-40); MCH 27.8 pg (25.7-33.7); MCHC 32.9 g/dl (32.0-35.9); MEAN CELL VOLUME 84.4 fl (80-96); MEAN PLT VOLUME 8.5 fl (7.5-11.1); MONO % 4.5 % (3.8-10.2); NEUT % 88.5 % (42.8-82.8); PLATELET COUNT 175 10^3/uL (134-434); RBC 4.47 M/mm3 (4.00-5.60); RDW 16.4 % (11.9-15.9); WHITE BLOOD COUNT 3.9 K/mm3 (4.0-10.0)
[2024-02-03] MEDS: ALBUTEROL SO4 2.5/IPRATROPIUM 0.5 INH SOL 3 ML VIAL.NEB. NEB ONE (20:31)
[2024-02-03 20:42] LABS: INR 1.11 (0.83-1.09); PROTHROMBIN TIME (PATIENT) 12.5 SEC (9.7-13.0)
[2024-02-03 20:44] LABS: ACTIVATED PTT 26.8 SECONDS (25.2-36.5)
[2024-02-03 21:09] LABS: POTASSIUM 3.3 mmol/L (3.5-5.1)
[2024-02-03 21:11] LABS: ALBUMIN 3.3 g/dl (3.4-5.0); BLOOD UREA NITROGEN 23.8 mg/dL (7-18); CALCIUM 7.9 mg/dL (8.5-10.1)
[2024-02-03] MEDS ORDERED: MAG HYDROX/AL HYDROX/SIMETH 30 ML UNIT-DOSE CUP ONE (21:14)
[2024-02-03] MEDS ORDERED: FAMOTIDINE 20 MG/50 ML IVPB 20 MG/50 ML MG IVPB ONE (21:14)
[2024-02-03 21:16] LABS: BILIRUBIN,TOTAL 0.7 mg/dL (0.2-1); TOT PROT 6.1 g/dl (6.4-8.2)
[2024-02-03 21:19] LABS: N-TERMINAL BNP 189.3 pg/ml (5-450)
[2024-02-03] MEDS: FAMOTIDINE 20 MG/50 ML IVPB 20 MG/50 ML MG IVPB ONE (21:19)
[2024-02-03] MEDS: MAG HYDROX/AL HYDROX/SIMETH 30 ML UNIT-DOSE CUP PO ONE (21:19)
[2024-02-03 22:18] LABS: URINE APPEARANCE Clear; URINE BILIRUBIN Negative (NEGATIVE); URINE COLOR Yellow; URINE GLUCOSE (UA) Negative (NEGATIVE); URINE KETONE Negative (NEGATIVE); URINE LEUK ESTERASE Negative (NEGATIVE); URINE NITRITE Negative (NEGATIVE); URINE PROTEIN Negative (NEGATIVE); URINE UROBILINOGEN 0.2 mg/dL (0.2-1.0)
[2024-02-03] MEDS ORDERED: ACETAMINOPHEN INJECTION 100 ML ONE (23:35)
[2024-02-03] MEDS: ACETAMINOPHEN 1000 MG/100 ML BAG IVPB ONE (23:48)
[2024-02-04] MEDS ORDERED: LEVALBUTEROL HCL 0.63 MG/3 ML VIAL.NEB. IH PRN (00:46)
[2024-02-04] MEDS: FUROSEMIDE 40 MG/4 ML INJECTABLE VIAL IVPUSH ONE (00:47)
[2024-02-04] MEDS: methylPREDNISolone NA SUCC 40 MG/1 ML VIAL IVPUSH SCH (01:14)
[2024-02-04] MEDS: KCL 10 MEQ IVPB 10 MEQ/100 ML INFUS.BAG IVPB SCH (01:14)
[2024-02-04] MEDS: POTASSIUM CHLORIDE ORAL LIQUID 20 MEQ/15 ML PO ONE (01:21)
[2024-02-04] MEDS: PANTOPRAZOLE 20 MG TABLET PO ONE (05:49)
[2024-02-04] MEDS: BUDESONIDE/FORMETEROL FUMARATE 160/4.5 mcg INHALER IH SCH (05:52)
[2024-02-04] MEDS ORDERED: ACETAMINOPHEN 325 MG TABLET (FP) PO PRN (06:00)
[2024-02-04 08:11] LABS: HEMATOCRIT 36.4 % (35.4-49); HEMOGLOBIN 11.7 GM/dL (11.7-16.9); MCH 27.2 pg (25.7-33.7); MCHC 32.2 g/dl (32.0-35.9); MEAN CELL VOLUME 84.6 fl (80-96); MEAN PLT VOLUME 9.1 fl (7.5-11.1); PLATELET COUNT 170 10^3/uL (134-434); RDW 16.4 % (11.9-15.9); WHITE BLOOD COUNT 3.4 K/mm3 (4.0-10.0)
[2024-02-04 08:33] LABS: POTASSIUM 3.6 mmol/L (3.5-5.1)
[2024-02-04 08:37] LABS: CHOLESTEROL 115 mg/dL (50-200)
[2024-02-04 08:38] LABS: BLOOD UREA NITROGEN 27.1 mg/dL (7-18); CALCIUM 7.6 mg/dL (8.5-10.1); LDL CHOLESTEROL (ONLY SJRH) 51 mg/dL (5-100)
[2024-02-04 08:39] LABS: MAGNESIUM 2.3 mg/dL (1.8-2.4)
[2024-02-04 08:40] LABS: HDL CHOLESTEROL 63 mg/dL (40-60)
[2024-02-04 08:41] LABS: CREATININE 1.2 mg/dL (0.55-1.3)
[2024-02-04 08:42] LABS: PHOSPHOROUS 2.4 mg/dL (2.5-4.9)
[2024-02-04 08:43] LABS: BILIRUBIN,TOTAL 0.4 mg/dL (0.2-1); TOT PROT 5.8 g/dl (6.4-8.2)
[2024-02-04 09:15] LABS: ANISOCYTOSIS 0; MACROCYTOSIS 0
[2024-02-04 09:16] LABS: PLATELET ESTIMATE ADEQUATE
[2024-02-04] MEDS: ENOXAPARIN NA (PORCINE) 40 MG/0.4 ML DISP.SYRIN SQ SCH (09:41)
[2024-02-04] MEDS: PANTOPRAZOLE 40 MG TABLET PO SCH (09:42)
[2024-02-04 15:38] VITALS: RESP 18
[2024-02-04] MEDS: NAPH,MB-DB/K PH,MBDB POWDER PACKET PO ONE (17:39)
[2024-02-05] MEDS: FUROSEMIDE 40 MG/4 ML INJECTABLE VIAL IVPUSH SCH (10:24)
[2024-02-05] MEDS: DIVALPROEX SODIUM 250 MG TABLET E.C. PO SCH (10:24)
[2024-02-05] MEDS ORDERED: TORSEMIDE 20 MG TABLET (FP) PO SCH (14:00)
[2024-02-05] MEDS: POTASSIUM CHLORIDE TABS 20 MEQ TABLET.ER (FP) PO SCH (21:06)
[2024-02-06 07:55] LABS: POTASSIUM 3.7 mmol/L (3.5-5.1)
[2024-02-06 08:02] LABS: CALCIUM 8.3 mg/dL (8.5-10.1)
[2024-02-06 08:03] LABS: BLOOD UREA NITROGEN 27.6 mg/dL (7-18)
[2024-02-06 12:29] VITALS: BMI 21.9
[2024-02-06 14:58] VITALS: PULSE 73; TEMP 97.7
[2024-02-06 19:41] VITALS: BP 130/70
== END 2024-02-06 19:58 | disposition home or self-care (01) ==
LOC: JER 18:54 → JERFT 18:54 → JERBED 21:13 → J4W 02-04 00:11
PROVIDERS: ADMIT Internal Medicine; ATTEND Family Medicine
PROC: 3E033NZ Introduction of Analgesics, Hypnotics, Sedatives into Peripheral Vein, Percutaneous Approach (ICD-10-PCS; principal; 2024-02-03)
PROC: 3E0F7GC Introduction of Other Therapeutic Substance into Respiratory Tract, Via Natural or Artificial Opening (ICD-10-PCS; 2024-02-03)
PROC: 3E033GC Introduction of Other Therapeutic Substance into Peripheral Vein, Percutaneous Approach (ICD-10-PCS; 2024-02-03)
PROC: 3E023GC Introduction of Other Therapeutic Substance into Muscle, Percutaneous Approach (ICD-10-PCS; 2024-02-03)
DX: J06.9 Acute upper respiratory infection, unspecified (principal); J44.9 Chronic obstructive pulmonary disease, unspecified; R09.89 Other specified symptoms and signs involving the circulatory and respiratory systems; K21.9 Gastro-esophageal reflux disease without esophagitis; R13.10 Dysphagia, unspecified; E87.6 Hypokalemia; I50.9 Heart failure, unspecified; R05.9 Cough, unspecified; Z91.018 Allergy to other foods
CPT/HCPCS: 0241U-QW; 36415; 71045-TC-FY; 71250-TC; 80048; 80053; 80061; 81003; 83735; 83880; 84100; 84439; 84443; 84484; 85025; 85610; 85730; 87040; 87086; 93005; 93010; 93306-TC; 94640; 96365; 96367; 96372; 96375; 97116-GP; 97161-GP; 99285-25; G0378; J0131